=== PATIENT | female | born 1960 | race Caucasian/White ===

== ENCOUNTER 2021-04-03 13:29 | Outpatient (REF) | payer OTHER, SELFPAY ==
[2021-04-03 15:23] LABS: MANUAL DIFF FLAG NO
[2021-04-03 15:37] LABS: Basophils Percent Auto 0.5 % (0-2); Eosinophils Absolute Auto 0.1 X10*3/uL (0.0-0.4); Eosinophils Percent Auto 0.7 % (0-4); Hematocrit 23.9 % (37-47); Hemoglobin 7.7 g/dl (12.0-16.0); Imm Gran Abs Auto 0.16 X10*3/uL (0.00-0.03); Imm Gran Pct Auto 2.1 % (0.0-0.4); Lymphocytes Absolute Auto 1.2 X10*3/uL (1.2-4.9); Lymphocytes Percent Auto 16.4 % (20-40); Mean Corpuscular HGB Conc 32.2 g/dl (31.0-35.0); Mean Corpuscular Hemoglobin 32.1 pg (27.0-33.0); Mean Corpuscular Volume 99.6 fL (80-98); Mean Platelet Volume 10.3 fL (9.4-12.3); Monocytes Absolute Auto 0.8 X10*3/uL (0.1-1.2); Monocytes Percent Auto 10.6 % (2-11); Neutrophils Absolute Auto 5.2 X10*3/uL (2.0-8.3); Neutrophils Percent Auto 69.7 % (45-73); Platelet Count 252 X10*3/uL (160-400); Red Cell Distribution Width 16.4 % (11.0-16.0); White Blood Count 7.5 X10*3/uL (4.8-10.8)
[2021-04-03 15:41] LABS: Alanine Aminotransferase 30 U/L (0-31); Albumin Level 3.3 g/dL (3.5-5.0); Alkaline Phosphatase 457 U/L (39-117); Anion Gap 15 (12-20); Aspartate Amino Transferase 33 U/L (5-31); Bilirubin Total 0.4 mg/dL (0.0-1.0); Blood Urea Nitrogen 18 mg/dL (9-16); C Reactive Protein 0.88 mg/dL (< or = 0.50); Calcium 8.7 mg/dL (8.4-10.2); Carbon Dioxide 23 mmol/L (22-29); Chloride 109 mmol/L (96-108); Estimated Glomerular Filt Rate 37; Glucose Random 83 mg/dL (60-115); Potassium 4.7 mmol/L (3.3-5.1); Rheumatoid Factor < 15.0 IU/mL (<15.0); Sodium 142 mmol/L (135-145); Total Protein 6.3 g/dL (6.5-8.0)
[2021-04-03 16:33] LABS: Erythrocyte Sedimentation Rate > 140 MM/HR (0-20); Glucose Urine UA NEG (NEG); Leukocyte Esterase Urine NEG (NEG); Nitrite Urine NEG (NEG); Specific Gravity - Urine 1.025 (1.005-1.025); Urine Blood 2+ (NEG); Urine Ketones NEG (NEG); Urine Protein 3+ MG/DL (NEG-TRACE)
[2021-04-03 16:35] LABS: Appearance Urine CLEAR; Color Urine YELLOW
[2021-04-03 16:49] LABS: Creatinine Urine 114.53 mg/dL
[2021-04-03 16:55] LABS: Bacteria Urine TRACE /LPF; Hyaline Casts Urine 0-2 /LPF; Squamous Epithelial Cell Urine TRACE /LPF
[2021-04-03 17:02] LABS: Protein/Creatinine Ratio, Ur 2.22 (<0.2); Total Protein Urine Random 254 mg/dL (<12)
[2021-04-05 07:02] LABS: Beta-2 Microglobulin, Serum 6.62 mg/L (< OR = 2.51)
[2021-04-05 13:06] LABS: Complement C3 119 mg/dL (83-193)
[2021-04-05 13:57] LABS: Anti DNA DS Antibody <1 IU/mL; Antibody to SS-A Antigen >8.0 POS AI (<1.0 NEG); Antibody to SS-B Antigen <1.0 NEG AI (<1.0 NEG); Cardiolipin IgG Ab <2.0 GPL-U/mL; Cardiolipin IgM Ab 7.6 MPL-U/mL; SM/Ribonucleoprotein Ab <1.0 NEG AI (<1.0 NEG); Smith Protein <1.0 NEG AI (<1.0 NEG)
[2021-04-05 16:36] LABS: Cyclic Citrullinated Peptide <16 UNITS
[2021-04-07 11:46] LABS: Anti Nuclear Antibody Screen POSITIVE (NEGATIVE)
[2021-04-08 13:41] LABS: PTT (LAC) Screen 26 sec (< OR = 40)
== END 2021-04-03 13:30 | disposition home or self-care (01) ==
LOC: HO.LAB 13:29
PROVIDERS: PCP Nurse Practitioner Family; Visit Provider Student in an Organized Health Care Education/Training Program
DX: M32.9 Systemic lupus erythematosus, unspecified (principal); M32.14 Glomerular disease in systemic lupus erythematosus
CPT/HCPCS: 36415; 80053; 81001; 82232; 84156; 85025; 85597; 85613; 85652; 85730; 86038; 86039; 86140; 86147; 86160; 86200; 86225; 86235; 86431

== ENCOUNTER → 2021-04-18 09:45 | Outpatient (BNVA) | payer OTHER, SELFPAY | PROVIDERS: Visit Provider Student in an Organized Health Care Education/Training Program ==